=== PATIENT | male | born 1970 | race Caucasian/White ===

== ENCOUNTER 2018-12-10 21:22 | Emergency (ER) | payer MEDICAID ==
[~2018-12-10] VITALS: Ht 172.7 cm; Wt 119.3 kg
[2018-12-10] MEDS ORDERED: DIPHTH,PERTUSS(ACELL),TET TOX 0.5 ML DISP.SYRIN. VAX IM ONE (22:00)
[2018-12-10] MEDS ORDERED: IBUPROFEN 600 MG TABLET. PO ONE (22:00)
--- NOTE | 2018-12-10 22:08 | PHYS DOC ---
Past History Past Medical History: CAD, CHF, COPD, Hypertension Past Surgical History: Knee Replacement, Other Additional Past Surgical Histo: nose, median sternotomy Smoking: Quit Greater Than 1 Year Alcohol Use: Rarely Drug Use: None Adult General Chief Complaint Chief Complaint: LOWER EXT PAIN HPI HPI Patient is a 48-year-old male presents with right foot pain. This morning as he was moving, he dropped a heavy crate onto his foot. It also cut his barakat. He is uncertain as to when his last tetanus vaccine was. Bleeding was controlled with time and pressure. Increased pain with movement of his foot. No new lower extremity swelling. He does have a history of congestive heart failure but no increased shortness of breath. He had decreased oral intake today due to moving his household goods. No home pain medicines have been taken. [] Review of Systems Review of Systems Constitutional: Denies fever or chills [] Eyes: Denies change in visual acuity, redness, or eye pain [] HENT: Denies nasal congestion or sore throat [] Respiratory: Denies cough or shortness of breath [] Cardiovascular: No chest pain or palpitations[] GI: Denies abdominal pain, nausea, vomiting, bloody stools or diarrhea [] : Denies dysuria or hematuria [] Musculoskeletal: Denies back pain, see history of present illness[] Integument: Denies rash or skin lesions, see history of present illness [] Neurologic: Denies headache, focal weakness or sensory changes [] Endocrine: Denies polyuria or polydipsia [] All other systems were reviewed and found to be within normal limits, except as documented in this note. Current Medications Current Medications Current Medications Medications (Trade) Dose Ordered Sig/Hillary Start Time Stop Time Status Last Admin Dose Admin Diphtheria/ Tetanus/Acell Pertussis (Boostrix) 0.5 ml ONCE ONCE 12/10/18 22:00 12/10/18 22:03 DC Ibuprofen (Motrin) 600 mg 1X ONCE 12/10/18 22:00 12/10/18 22:03 DC Allergies Allergies Allergies Coded Allergies Type Severity Reaction Last Updated Verified Penicillins Allergy Unknown 12/10/18 Yes Physical Exam Physical Exam Constitutional: Well developed, well nourished, no acute distress, non-toxic appearance. [] HENT: Normocephalic, atraumatic, bilateral external ears normal, oropharynx moist, no oral exudates, nose normal. [] Eyes: PERRLA, EOMI, conjunctiva normal, no discharge. [] Neck: Normal range of motion, no tenderness, supple, no stridor. [] Cardiovascular:Heart rate regular rhythm, no murmur [] Lungs & Thorax: Bilateral breath sounds clear to auscultation [] Abdomen: Not examined. [] Skin: Warm, dry, no erythema, no rash. [] Back: No tenderness, no CVA tenderness. [] Extremities: Right calf has a deep abrasion anterior portion mid calf. No pain with axial loading of the tibia or the fibula. No active bleeding. No ankle or knee tenderness on the right. Right foot has diffuse tenderness towards the medial aspect along the metatarsals. There is diffuse swelling. No bruising. Patient is distally neurovascularly intact. The other 3 extremities show: No tenderness, no cyanosis, no clubbing, ROM intact, no edema. [] Neurologic: Alert and oriented X 3, normal motor function, normal sensory function, no focal deficits noted. [] Psychologic: Affect normal, judgement normal, mood normal. [] Current Patient Data Vital Signs Vital Signs Date Time Temp Pulse Resp B/P (MAP) Pulse Ox O2 Delivery O2 Flow Rate FiO2 12/10/18 21:46 98.4 116 18 99 Room Air EKG EKG EKG shows a sinus tachycardia at 118 bpm, left axis deviation, left anterior fascicular block as well as right bundle-branch blocks are present. QTc of [address] elevations. Old EKG available for comparison.[] Radiology/Procedures Radiology/Procedures PROCEDURE: CHEST PA & LATERAL PA and lateral chest. HISTORY: Dizziness, weakness, short of breath PA and lateral views were taken of the chest. Patient's had a previous sternotomy. The heart is upper normal in size. There is no pleural effusion. There are no confluent infiltrates. There is not evidence of heart failure. IMPRESSION: 1. Borderline cardiac enlargement. 2. No acute infiltrates. PROCEDURE: FOOT RIGHT 3V Right foot 3 views. HISTORY: Pain and swelling, Dave fell on foot 3 views were taken of the right foot. There is an old fracture or stress fracture of the fourth metatarsal with incomplete healing. There is a small chip or evulsion fracture at the navicular first cuneiform joint noted on the oblique view. There is soft tissue swelling. There is no other fracture. IMPRESSION: 1. Old fracture or stress fracture fourth metatarsal with incomplete healing. 2. Possible small chip fracture at the joint between the navicular and first cuneiform on the oblique view.[] Course & Med Decision Making Course & Med Decision Making Pertinent Labs and Imaging studies reviewed. (See chart for details) ED course: Patient arrived, was placed in bed, tolerated exam well. His tetanus vaccine status was updated. He was given pain medicine. Postop shoe was applied after imaging findings were obtained. Findings were discussed with patient who voiced understanding. All questions were answered. He was distally neurovascularly intact after the postoperative shoe was placed. At about this time he notes that he is having shortness of breath like his CHF. He has had nothing to eat or drink today with the moving. No worsening shortness of breath with exertion. No worsening shortness of breath with recumbent position. No orthopnea or PND. No chest pain. No leg swelling other than the foot. Testing was performed to determine if there was an acute reactive issue present. His chest x-ray shows no evidence of failure. While his BNP is slightly elevated, his oxygen saturation is normal at 97-98%. His heart rate improved. He was discharged in improved condition with all questions answered. Medical decision making: There appears to be an old injury to his fourth metatarsal. There does not appear to be an acute fracture or dislocation. He is being given consultation to orthopedic surgery for follow-up. There is no evidence of neurologic compromise. There is no evidence of an acute congestive heart failure exacerbation, no acute coronary syndrome, no pneumonia, no pneumo thorax. No evidence of a DVT or PE.[] Dragon Disclaimer Dragon Disclaimer This electronic medical record was generated, in whole or in part, using a voice recognition dictation system. Departure Departure: Impression: Primary Impression: Foot pain, right Additional Impression: Congestive heart failure Disposition: 01 HOME, SELF-CARE Condition: IMPROVED Referrals: PCP,MOMO (PCP) KONSTANTIN CHAVEZ MD Orthopedic surgeon, call today to arrange follow-up appointment next week Patient Instructions: DASH Diet, Foot Contusion, Foot Fracture Additional Instructions: Heart Failure Discharge Care WHAT YOU NEED TO KNOW: Heart failure (HF) is a condition that does not allow your heart to fill or pump properly. Not enough oxygen in your blood gets to your organs and tissues. Fluid may not move through your body properly. Fluid builds up and causes swelling and difficulty breathing. This is known as congestive heart failure. HF may start in the left or right ventricle. HF is often caused by damage or injury to your heart. The damage may be caused by other heart problems, diabetes, or high blood pressure. The damage may have also been caused by an infection. HF is a long-term condition that tends to get worse over time. It is important to manage your health to improve your quality of life. Heart Failure DISCHARGE INSTRUCTIONS: Call your local emergency number (911 in the ) if: You have any of the following signs of a heart attack: Squeezing, pressure, or pain in your chest and any of the following: Discomfort or pain in your back, neck, jaw, stomach, or arm Shortness of breath Nausea or vomiting Lightheadedness or a sudden cold sweat Call your doctor if: Your heartbeat is fast, slow, or uneven all the time. You have symptoms of worsening HF: Shortness of breath at rest, at night, or that is getting worse in any way Weight gain of 3 or more pounds (1.4 kg) in a day, or more than your healthcare provider says is okay More swelling in your legs or ankles Abdominal pain or swelling More coughing Loss of appetite Feeling tired all the time You feel hopeless or depressed, or you have lost interest in things you used to enjoy. You often feel worried or afraid. You have questions or concerns about your condition or care. Follow-up with your doctor in 2 days. If you do not have a regular doctor a list of local clinics will be provided. Call Dr. Chavez with orthopedic surgery to arrange to be seen in this next week. Scripts Meloxicam (MELOXICAM) 7.5 Mg Tablet 7.5 MG PO DAILY for PAIN, #20 TAB Prov: LEANNA GREY DO 12/11/18 Problem Qualifiers Additional Impression: Congestive heart failure Heart failure type: unspecified Heart failure chronicity: chronic Qualified Codes: I50.9 - Heart failure, unspecified LEANNA GREY DO Dec 10, 2018 22:08
--- NOTE | 2018-12-10 22:55 | EKG ---
[address] [address] Test Date: 2018-12-10 Test Time: 22:56:17 Pat Name: THONY PREEZ Department: Room: Gender: M Intelligence Agent: : [id number] Requested By: LEANNA GREY Order Number: [id number] Reading MD: Measurements Intervals [place] Rate: 118 P: 68 PA: 100 QRS: -60 QRSD: 132 T: 26 QT: 352 QTc: 496 Interpretive Statements SINUS TACHYCARDIA ABNORMAL LEFT AXIS DEVIATION S1,S2,S3 PATTERN LEFT ANTERIOR FASCICULAR BLOCK RIGHT BUNDLE BRANCH BLOCK BIFASCICULAR BLOCK RVH WITH REPOLARIZATION ABNORMALITY ABNORMAL ECG RI6.01 No previous ECG available for comparison
--- NOTE | 2018-12-10 23:15 | RAD ---
PA and lateral chest. HISTORY: Dizziness, weakness, short of breath PA and lateral views were taken of the chest. Patient's had a previous sternotomy. The heart is upper normal in size. There is no pleural effusion. There are no confluent infiltrates. There is not evidence of heart failure. IMPRESSION: 1. Borderline cardiac enlargement. 2. No acute infiltrates. Electronically signed by: Sachin Cameron MD (12/10/2018 11:12 PM) [facility]
[2018-12-10 23:24] LABS: BASO % 0 % (0-3); EOS # 0.1 x10^3/uL (0.0-0.7); EOS % 1 % (0-3); HEMATOCRIT 41.5 % (39.0-53.0); HEMOGLOBIN 13.9 g/dL (13.0-17.5); LYMPH # 1.7 x10^3/uL (1.0-4.8); LYMPH % 20 % (24-48); MEAN CORPUSCULAR HEMOGLOBIN 29 pg (25-35); MEAN CORPUSCULAR HGB CONC 33 g/dL (31-37); MEAN CORPUSCULAR VOLUME 87 fL (79-100); MONO # 0.6 x10^3/uL (0.0-1.1); MONO % 7 % (0-9); NEUT # 6.3 x10^3uL (1.8-7.7); NEUT % 73 % (31-73); PLATELET COUNT 228 x10^3/uL (140-400); RED BLOOD COUNT 4.76 x10^6/uL (4.30-5.70); RED CELL DISTRIBUTION WIDTH 14.8 % (11.5-14.5); WHITE BLOOD COUNT 8.7 x10^3/uL (4.0-11.0)
--- NOTE | 2018-12-10 23:24 | RAD ---
Right foot 3 views. HISTORY: Pain and swelling, Dave fell on foot 3 views were taken of the right foot. There is an old fracture or stress fracture of the fourth metatarsal with incomplete healing. There is a small chip or evulsion fracture at the navicular first cuneiform joint noted on the oblique view. There is soft tissue swelling. There is no other fracture. IMPRESSION: 1. Old fracture or stress fracture fourth metatarsal with incomplete healing. 2. Possible small chip fracture at the joint between the navicular and first cuneiform on the oblique view. Electronically signed by: Sachin Cameron MD (12/10/2018 11:21 PM) [facility]
[2018-12-10 23:43] LABS: ALBUMIN 3.5 g/dL (3.4-5.0); ALBUMIN/GLOBULIN RATIO 1.1 (1.0-1.7); GFR 79.1; MAGNESIUM 1.8 mg/dL (1.8-2.4); POTASSIUM 3.9 mmol/L (3.5-5.1); TOTAL BILIRUBIN 0.5 mg/dL (0.2-1.0); TOTAL PROTEIN 6.7 g/dL (6.4-8.2)
[2018-12-10] MEDS ORDERED: IV NORMAL SALINE 500ML 500 ML IV ONE (23:45)
[2018-12-11] MEDS ORDERED: MELO7.5T29 PO (00:03)
[2018-12-11 00:12] VITALS: BP 162/86
== END 2018-12-11 00:20 | disposition home or self-care (01) ==
LOC: ER 21:22
DX: S80.811A Abrasion, right lower leg, initial encounter (principal); M79.671 Pain in right foot; I11.0 Hypertensive heart disease with heart failure; I50.9 Heart failure, unspecified; I25.10 Atherosclerotic heart disease of native coronary artery without angina pectoris; J44.9 Chronic obstructive pulmonary disease, unspecified; Z87.891 Personal history of nicotine dependence; Z88.0 Allergy status to penicillin; W20.8XXA Other cause of strike by thrown, projected or falling object, initial encounter; Y93.89 Activity, other specified; Y92.89 Other specified places as the place of occurrence of the external cause; Y99.8 Other external cause status
CPT/HCPCS: 36415; 71046; 73630; 80053; 83735; 83880; 84484; 85025; 90471; 90715; 93005; 99285-25